=== PATIENT | female | born 1985 | race Caucasian/White ===

== ENCOUNTER 2020-08-14 15:30 | Outpatient (REF) | payer OTHER, SELFPAY ==
[2020-08-14 17:54] LABS: COVID-19 Test Negative (Negative); IDNOW Serial# 55D5AD1C
== END 2020-08-14 15:31 | disposition home or self-care (01) ==
LOC: HO.EMPCOV 15:30
PROVIDERS: Visit Provider Internal Medicine
DX: Z20.828 Contact with and (suspected) exposure to other viral communicable diseases (principal)
CPT/HCPCS: 87635; C9803

== ENCOUNTER 2020-09-17 13:20 | Outpatient (REF) | payer SELFPAY ==
[2020-09-17 14:19] LABS: Cholesterol 180 mg/dL
[2020-09-18 04:21] LABS: SARS COV2 IgG Negative (Negative)
== END 2020-09-17 13:21 | disposition home or self-care (01) ==
LOC: HO.LNC 13:20
PROVIDERS: Visit Provider Pathology Anatomic Pathology & Clinical Pathology
DX: Z13.89 Encounter for screening for other disorder (principal)
CPT/HCPCS: 36415; 82465; 86769

== ENCOUNTER 2020-10-09 13:40 | Outpatient (REF) | payer OTHER, SELFPAY ==
[2020-10-09 13:56] LABS: COVID-19 Test Negative (Negative)
== END 2020-10-09 13:41 | disposition home or self-care (01) ==
LOC: HO.EMPCOV 13:40
PROVIDERS: Visit Provider Internal Medicine
DX: Z20.822 Contact with and (suspected) exposure to COVID-19 (principal)
CPT/HCPCS: 36415; 87635; C9803

== ENCOUNTER 2020-12-05 14:11 | Outpatient (REF) | payer OTHER, SELFPAY ==
[2020-12-05 14:32] LABS: COVID-19 Test Negative (Negative)
== END 2020-12-05 14:12 | disposition home or self-care (01) ==
LOC: HO.EMPCOV 14:11
PROVIDERS: Visit Provider Internal Medicine
DX: Z20.822 Contact with and (suspected) exposure to COVID-19 (principal)
CPT/HCPCS: 36415; 87635; C9803

== ENCOUNTER 2021-03-15 07:28 | Outpatient (REF) | payer OTHER, SELFPAY ==
[2021-03-15 07:20] LABS: MANUAL DIFF FLAG NO
[2021-03-15 07:23] LABS: Basophils Percent Auto 0.5 % (0-2); Eosinophils Absolute Auto 0.1 X10*3/uL (0.0-0.4); Eosinophils Percent Auto 2.4 % (0-4); Hematocrit 43.8 % (37-47); Hemoglobin 14.7 g/dl (12.0-16.0); Imm Gran Abs Auto 0.01 X10*3/uL (0.00-0.03); Imm Gran Pct Auto 0.2 % (0.0-0.4); Lymphocytes Absolute Auto 1.4 X10*3/uL (1.2-4.9); Lymphocytes Percent Auto 32.2 % (20-40); Mean Corpuscular HGB Conc 33.6 g/dl (31.0-35.0); Mean Corpuscular Hemoglobin 34.4 pg (27.0-33.0); Mean Corpuscular Volume 102.6 fL (80-98); Mean Platelet Volume 9.6 fL (9.4-12.3); Monocytes Absolute Auto 0.4 X10*3/uL (0.1-1.2); Monocytes Percent Auto 8.6 % (2-11); Neutrophils Absolute Auto 2.4 X10*3/uL (2.0-8.3); Neutrophils Percent Auto 56.1 % (45-73); Platelet Count 249 X10*3/uL (160-400); Red Blood Count 4.27 X10*6/uL (4.20-5.50); Red Cell Distribution Width 12.3 % (11.0-16.0); White Blood Count 4.2 X10*3/uL (4.8-10.8)
[2021-03-15 07:51] LABS: Alanine Aminotransferase 16 U/L (0-31); Albumin Level 4.7 g/dL (3.5-5.0); Alkaline Phosphatase 34 U/L (39-117); Anion Gap 13 (12-20); Aspartate Amino Transferase 17 U/L (5-31); Bilirubin Total 0.8 mg/dL (0.0-1.0); Blood Urea Nitrogen 17 mg/dL (9-16); Calcium 9.9 mg/dL (8.4-10.2); Carbon Dioxide 27 mmol/L (22-29); Chloride 105 mmol/L (96-108); Cholesterol 202 mg/dL; Estimated Glomerular Filt Rate > 60; Glucose Random 98 mg/dL (60-115); HDL Cholesterol 80 mg/dL; LDL Cholesterol Calculated 113 mg/dl; Potassium 4.9 mmol/L (3.3-5.1); Sodium 140 mmol/L (135-145); Total Protein 7.1 g/dL (6.5-8.0); Triglycerides 46 mg/dL
[2021-03-15 08:12] LABS: TSH reflex Free T4 0.79 uIU/mL (0.32-4.0)
== END 2021-03-15 07:29 | disposition home or self-care (01) ==
LOC: HO.LAB 07:28
PROVIDERS: PCP Family Medicine; Visit Provider Family Medicine
DX: I73.00 Raynaud's syndrome without gangrene (principal); Z79.899 Other long term (current) drug therapy
CPT/HCPCS: 36415; 80053; 80061; 84443; 85025

== ENCOUNTER 2021-05-20 09:39 | Outpatient (REF) | payer OTHER, SELFPAY ==
[2021-05-20 14:13] LABS: COVID-19 Test Negative (Negative)
== END 2021-05-20 09:40 | disposition home or self-care (01) ==
LOC: HO.LAB 09:39
PROVIDERS: Internal Medicine; Visit Provider Anesthesiology
DX: Z20.822 Contact with and (suspected) exposure to COVID-19 (principal)
CPT/HCPCS: 36415; 87635; C9803; U0003; U0005

== ENCOUNTER → 2022-03-28 12:49 | Outpatient (REF) | payer OTHER, SELFPAY ==
--- NOTE | 2022-03-28 12:56 | CA_ITS ---
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 The visually estimated ejection fraction is between 55-60%. Diastolic function is normal for age. Normal GLS values. - Normal right ventricular cavity size and systolic function. Findings Left Ventricle Normal left ventricular size, thickness, systolic function, and wall motion. The visually estimated ejection fraction is between 55-60%. Diastolic function is normal for age. Normal GLS values. Right Ventricle Normal right ventricular cavity size and systolic function. Atria Both atria are normal in size. Aortic Valve Normal aortic valve structure and function. There is no aortic valve stenosis. There is no aortic valve regurgitation. Mitral Valve The mitral valve appears normal. There is no mitral valve regurgitation. There is no mitral valve stenosis. Pulmonic Valve Normal pulmonic valve structure and function. There is trace pulmonic valve regurgitation. Tricuspid Valve Normal tricuspid valve structure and function. There is trace tricuspid valve regurgitation. Tricuspid regurgitation envelope is inadequate for calculation of right ventricular systolic pressure. Normal right atrial pressure. Great Vessels All visible segments of the aorta are normal in size. The visualized portions of the pulmonary artery and branches are normal. Venous The inferior vena cava is normal in size and collapses greater than 50% with inspiration. Pericardium/Pleural Normal pericardial structure. There is no evidence of pericardial effusion. Prior Study Comparison No prior study available for comparison. Measurements 2D Linear Measurements IVSd: 0.60 0.6-0.9/0.6-1.0 cm LVIDd: 5.00 3.9-5.3/4.2-5.9 cm LVIDd Index: 2.84 2.4-3.2/2.2-3.1 cm/m2 LVIDs: 3.46 2.0-3.6 cm LVPWd: 0.61 0.7-1.1 cm LA Diam: 3.40 2.7-3.8/3.0-4.0 cm LAIDs Index: 1.93 1.5-2.3 cm/m2 LV Mass: 119.06 67-162/88-224 g LV Mass Index: 67.65 43-95/49-115 g/m2 LVOT Diam: 2.10 3.0+(-)1.3 cm 2D Systolic Function EF 4C: 61.40 >55% Mitral Valve MV Pk E: 0.86 MV PK A: 0.39 MV Decel Time: 205.00 E/A: 2.20 E'Lateral: 16.30 E'Medial: 14.00 E/E' Med: 6.10 E/E' Lat: 5.30 PHT: 60.00 MVA PHT: 3.67 Decel [place]: 4.18 Aortic Valve AoV Pk Andrea: 1.37 AoV Mn Andrea: 0.99 AoV VTI: 0.25 AoV Pk Grad: 8.00 Aov Mn Grad: 4.00 TINY Cont.VTI: 2.44 LVOT LVOT Pk Andrea: 0.93 LVOT Mn Andrea: 0.67 LVOT VTI: 0.18 LVOT Pk Grad: 3.00 LVOT Mn Grad: 2.00 LVOT Diam: 2.10 LVOT Area: 3.46 Diastolic Function MV Pk E: 0.86 MV Pk A: 0.39 E/A: 2.20 E'Medial: 14.00 E/E' Med: 6.10 E' Laterial: 16.30 E/E' Lat: 5.30 Right Ventricle TAPSE (mm): 22.30 TVS' Andrea: 11.90 Tricuspid Valve RA Press: 3.00 Great Vessels Aorta Sinus of Valsalva: 3.20 2.0-3.5 cm Ao Asc: 2.40 2.1-3.4 cm Ao Arch: 2.50 Ao Desc: 1.60 Pulmonary Veins Pulm Vein S/D 0.60 Pulmonary Valve PV Pk Andrea: 0.82 Peak PV Grad: 3.00 Updated in Other Vendor System with Status of Final Raymon David MD electronically signed on 03/30/2022 12:48:05 PM with status of Final
== END ==
LOC: HO.CARD 12:49
PROVIDERS: Visit Provider Obstetrics & Gynecology
DX: Z87.74 Personal history of (corrected) congenital malformations of heart and circulatory system (principal); Z98.82 Breast implant status
CPT/HCPCS: 93306; 93356

== ENCOUNTER → 2022-04-22 11:06 | Outpatient (REF) | payer OTHER, SELFPAY ==
--- NOTE | 2022-04-22 11:10 | CA_ITS ---
Transthoracic Echocardiogram Patient (Last, First, Middle): Genevieve Vogel, Gender: Female Date of : 1985 Age: 36 Procedure Date: 04/22/2022 Procedure Type: Transthoracic Echocardiogram Location: OP Height: 162. 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 Findings Atria There is no evidence of interatrial shunt by agitated saline. With rest and valsalva. Prior Study Comparison No significant change compared to prior study dated: 03/28/2022. Updated in Other Vendor System with Status of Final Toni Marina MD electronically signed on 04/23/2022 12:24:25 PM with status of Final
== END ==
LOC: HO.CARD 11:06
PROVIDERS: Visit Provider Obstetrics & Gynecology
DX: Q24.9 Congenital malformation of heart, unspecified (principal); Z87.74 Personal history of (corrected) congenital malformations of heart and circulatory system
CPT/HCPCS: 93308

== ENCOUNTER 2023-01-13 12:31 | Outpatient (REF) | payer OTHER, SELFPAY ==
[2023-01-13 14:36] LABS: Ferritin 35 ng/mL (10-122); TSH reflex Free T4 0.82 uIU/mL (0.32-4.0); Vitamin D 25-OH Total 33.3 ng/mL (>30)
[2023-01-18 15:23] LABS: Zinc 64 mcg/dL (60-130)
== END 2023-01-13 12:32 | disposition home or self-care (01) ==
LOC: HO.LAB 12:31
PROVIDERS: Visit Provider Physician Assistant Medical
DX: L64.8 Other androgenic alopecia (principal); L65.0 Telogen effluvium; L21.8 Other seborrheic dermatitis; E55.9 Vitamin D deficiency, unspecified
CPT/HCPCS: 36415; 82306; 82728; 84443; 84630

== ENCOUNTER 2023-11-04 06:37 | Outpatient (REF) | payer OTHER, SELFPAY ==
[2023-11-04 06:51] LABS: MANUAL DIFF FLAG NO
[2023-11-04 07:40] LABS: Basophils Percent Auto 0.4 % (0-2); Eosinophils Absolute Auto 0.1 X10*3/uL (0.0-0.4); Eosinophils Percent Auto 2.2 % (0-4); Lymphocytes Absolute Auto 1.8 X10*3/uL (1.2-4.9); Lymphocytes Percent Auto 39.6 % (20-40); Mean Corpuscular HGB Conc 34.1 g/dl (31.0-35.0); Mean Corpuscular Hemoglobin 32.5 pg (27.0-33.0); Mean Corpuscular Volume 95.1 fL (80.0-98.0); Mean Platelet Volume 9.4 fL (9.4-12.3); Monocytes Absolute Auto 0.3 X10*3/uL (0.1-1.2); Monocytes Percent Auto 7.4 % (2-11); Neutrophils Absolute Auto 2.2 x10*3/uL (2.0-8.3); Neutrophils Percent Auto 50.4 % (45-73); Platelet Count 180 X10*3/uL (160-400); Red Blood Count 4.31 X10*6/uL (4.20-5.50); Red Cell Distribution Width 12.4 % (11.0-16.0); White Blood Count 4.5 X10*3/uL (4.8-10.8)
[2023-11-04 08:09] LABS: Alanine Aminotransferase 21 U/L (0-31); Albumin Level 4.4 g/dL (3.5-5.0); Alkaline Phosphatase 55 U/L (39-117); Anion Gap 12 (12-20); Aspartate Amino Transferase 22 U/L (5-31); Bilirubin Direct 0.2 mg/dL (0.0-0.5); Bilirubin Total 0.7 mg/dL (0.0-1.0); Blood Urea Nitrogen 14 mg/dL (9-16); Calcium 9.7 mg/dL (8.4-10.2); Carbon Dioxide 27 mmol/L (22-29); Chloride 105 mmol/L (96-108); Cholesterol 193 mg/dL (<200); Estimated Glomerular Filt Rate > 60; Glucose Random 90 mg/dL (60-115); HDL Cholesterol 44 mg/dL (>40); LDL Cholesterol Calculated 126 mg/dL (<100); Potassium 4.7 mmol/L (3.3-5.1); Sodium 139 mmol/L (135-145); Total Protein 6.9 g/dL (6.5-8.0); Triglycerides 118 mg/dL (<150)
[2023-11-04 08:48] LABS: Ferritin 143 ng/mL (10-122); Thyroid Stimulating Hormone 1.15 uIU/mL (0.32-4.0)
== END 2023-11-04 06:38 | disposition home or self-care (01) ==
LOC: HO.LAB 06:37
PROVIDERS: PCP Student in an Organized Health Care Education/Training Program; Visit Provider Student in an Organized Health Care Education/Training Program
DX: R53.83 Other fatigue (principal); E78.5 Hyperlipidemia, unspecified
CPT/HCPCS: 36415; 80048; 80061; 80076; 82728; 84443; 85025

== ENCOUNTER 2024-05-18 15:35 | Outpatient (REF) | payer OTHER, SELFPAY ==
[2024-05-18 16:58] LABS: TSH reflex Free T4 0.94 uIU/mL (0.32-4.0)
[2024-05-19 17:33] LABS: Follicle Stimulating Hormone 29.8 mIU/mL; Prolactin 9.6 ng/mL
[2024-05-23 14:13] LABS: Testosterone, Total 17 ng/dL (2-45)
[2024-05-26 07:02] LABS: Estradiol Ultra Sensitive 269 pg/mL
== END 2024-05-18 15:36 | disposition home or self-care (01) ==
LOC: HO.LAB 15:35
PROVIDERS: PCP Student in an Organized Health Care Education/Training Program; Visit Provider Urology
DX: E28.319 Asymptomatic premature menopause (principal); R68.82 Decreased libido
CPT/HCPCS: 36415; 82670; 83001; 84146; 84403; 84443